=== PATIENT | female | born 1990 | race Hispanic/Latino ===

== ENCOUNTER 2022-10-29 17:35 | Emergency (ER) | payer BC ==
[~2022-10-29] VITALS: Ht 165.1 cm; Wt 117.9 kg
[2022-10-29 17:47] VITALS: BP 151/82
[2022-10-29] MEDS ORDERED: OCTYL 2-CYANOACRYLATE 1 EACH TP SCH (18:30)
[2022-10-29] MEDS ORDERED: TETANUS/DIPHTHERIA TOXOID [ADULT] 0.5 ML VIAL IM ONE (18:30)
== END 2022-10-29 18:29 | disposition home or self-care (01) ==
LOC: EDH 17:35
DX: S61.213A Laceration without foreign body of left middle finger without damage to nail, initial encounter (principal); E11.9 Type 2 diabetes mellitus without complications; Z98.890 Other specified postprocedural states; W26.0XXA Contact with knife, initial encounter; Y93.89 Activity, other specified; Y92.89 Other specified places as the place of occurrence of the external cause; Y99.8 Other external cause status
CPT/HCPCS: 12001; 90471; 90714